=== PATIENT | female | born 1995 | race Caucasian/White ===

== ENCOUNTER 2019-10-28 08:49 | Emergency (ER) | payer MEDICAID ==
[~2019-10-28] VITALS: Ht 165.1 cm; Wt 83.0 kg
[2019-10-28 08:51] VITALS: BP 128/54
--- NOTE | 2019-10-28 08:58 | NUR ---
Patient ambulated to bed 4. RN evaluating patient at bedside.
--- NOTE | 2019-10-28 09:28 | NUR ---
Dr. iRos is evaluating the patient at bedside.
--- NOTE | 2019-10-28 09:30 | NUR ---
c/o dizziness and headache 01/15 x 1 month, and nausea x today. pt reports increased frequency. states similiar s/s last . pt informed test results were negative and that urine was neg for uti. pt alert and awake. neuro intact. ambulatory with steady gait. vs stable. med hx: denies
--- NOTE | 2019-10-28 09:33 | NUR ---
ACCU CHECK 109
[2019-10-28 09:41] VITALS: BP 131/62
--- NOTE | 2019-10-28 09:41 | NUR ---
Patient discharged with v/s stable. Written and verbal after care instructions given and explained. Patient alert, oriented and verbalized understanding of instructions. Ambulatory with steady gait. All questions addressed prior to discharge. ID band removed. Patient advised to follow up with PMD. Rx of motrin, zofran given. Patient educated on indication of medication including possible reaction and side effects. Opportunity to ask questions provided and answered.
== END 2019-10-28 09:41 | disposition home or self-care (01) ==
LOC: MED 08:49
DX: R42 Dizziness and giddiness (principal); R51 Headache; R11.0 Nausea; R35.0 Frequency of micturition
CPT/HCPCS: 81002; 81025; 99283